=== PATIENT | female | born 1975 | race Caucasian/White ===

== ENCOUNTER 2023-12-14 08:40 | Inpatient (IN) | payer MEDICAID ==
[~2023-12-14] VITALS: Ht 165.1 cm; Wt 72.6 kg
[2023-12-14 09:01] VITALS: BP_SYST 130; PULSE 108; RESP 22; TEMP 98.3; O2SAT 98
[2023-12-14 09:37] LABS: BILIRUBIN,URINE NEGATIVE (NEGATIVE); BLOOD, URINE 2+ (NEGATIVE); CLARITY/URINE SL CLOUDY (CLEAR); COLOR,URINE YELLOW (YELLOW); GLUCOSE,URINE NEGATIVE (NEGATIVE); KETONES,URINE NEGATIVE (NEGATIVE); LEUKOCYTE ESTERASE ,URINE 3+ (NEGATIVE); NITRITE, URINE POSITIVE (NEGATIVE); PROTEIN URINE 2+ (NEGATIVE)
[2023-12-14 09:38] LABS: BASOPHILS # (AUTO) 0.1 K/uL (0.0-0.2); BASOPHILS % (AUTO) 0.6 % (0.0-2.0); EOSINOPHILS # (AUTO) 0.1 K/uL (0.0-0.4); EOSINOPHILS % (AUTO) 0.5 % (0.0-4.0); HEMATOCRIT 36.9 % (36-48); HEMOGLOBIN 12.6 g/dL (12.0-16.0); LYMPHOCYTES # (AUTO) 1.6 K/uL (1.0-5.5); LYMPHOCYTES % (AUTO) 10.5 % (20.5-51.5); MEAN CORPUSCULAR HEMOGLOBIN 30 pg (27-31); MEAN CORPUSCULAR HGB CONC 34 % (32-36); MEAN CORPUSCULAR VOLUME 88 fL (79.0-98.0); MONOCYTES # (AUTO) 1.4 K/uL (0.0-1.0); MONOCYTES % (AUTO) 9.1 % (1.7-9.3); NEUTROPHILS # (AUTO) 12.2 K/uL (1.8-7.7); NEUTROPHILS % (AUTO) 79.3 % (40.0-70.0); PLATELET COUNT (AUTO) 269 K/uL (130-430); RED BLOOD CELL COUNT(AUTO) 4.21 MIL/uL (4.2-6.2); RED CELL DISTRIBUTION WIDTH 13.3 % (9.0-15.0); WHITE BLOOD COUNT (AUTO) 15.3 K/uL (4.8-10.8)
[2023-12-14 09:55] LABS: BACTERIA,URINE MANY /HPF (None Seen); WBC,URINE 50-80 /HPF (0-3)
[2023-12-14 09:57] LABS: ALBUMIN 2.9 g/dL (3.4-4.8); CALCIUM 8.2 mg/dL (8.4-11.0); CREATININE 1.47 mg/dL (0.55-1.30); POTASSIUM 3.8 mmol/L (3.5-5.1); TOTAL BILIRUBIN 0.8 mg/dL (0.0-1.0); TOTAL PROTEIN, SERUM 7.3 g/dL (6.4-8.3)
[2023-12-14] MEDS ORDERED: ACETAMINOPHEN 325 MG TABLET PO PRN ×2 (11:15→11:45)
[2023-12-14] MEDS ORDERED: HYDROcodone/ACETAMIN 5-325 MG TAB (NORCO/ VICODIN) PO PRN (11:15)
[2023-12-14] MEDS: MORPHINE 2 MG/ML INJ. SYRINGE IVP ONE (11:54)
[2023-12-14] MEDS: cefTRIAXone 1 GM in D5W 50 ML IV ONE (11:54)
[2023-12-14] MEDS: ONDANSETRON HCL 4 MG/2 ML VIAL IVP ONE (11:55)
[2023-12-14] MEDS ORDERED: cefTRIAXone 1 GM VIAL ONE (11:58)
[2023-12-14] MEDS ORDERED: ONDANSETRON HCL 4 MG/2 ML VIAL ONE (12:00)
[2023-12-14] MEDS: HYDROcodone/ACETAMIN 10-325 MG TAB PO PRN (13:39)
[2023-12-14] MEDS ORDERED: HYDR50TA61 PO (13:50)
[2023-12-14] MEDS ORDERED: LAMO25TA5 PO (13:50)
[2023-12-14] MEDS ORDERED: SERT-436 PO (13:50)
[2023-12-14] MEDS: LORazepam 2 MG/ML VIAL IVP PRN (18:28)
[2023-12-14 22:03] VITALS: BP_SYST 127; PULSE 92; RESP 18; TEMP 97.5; O2SAT 96
[2023-12-15] VITALS: BP_SYST 124; PULSE 78; RESP 18; TEMP 97.8; O2SAT 96
[2023-12-15 05:19] LABS: BASOPHILS # (AUTO) 0.1 K/uL (0.0-0.2); BASOPHILS % (AUTO) 0.6 % (0.0-2.0); EOSINOPHILS # (AUTO) 0.1 K/uL (0.0-0.4); EOSINOPHILS % (AUTO) 0.9 % (0.0-4.0); HEMATOCRIT 35.5 % (36-48); HEMOGLOBIN 12.1 g/dL (12.0-16.0); LYMPHOCYTES % (AUTO) 13.5 % (20.5-51.5); MEAN CORPUSCULAR HEMOGLOBIN 30 pg (27-31); MEAN CORPUSCULAR HGB CONC 34 % (32-36); MEAN CORPUSCULAR VOLUME 89 fL (79.0-98.0); MONOCYTES # (AUTO) 1.2 K/uL (0.0-1.0); MONOCYTES % (AUTO) 8.4 % (1.7-9.3); NEUTROPHILS # (AUTO) 11.3 K/uL (1.8-7.7); NEUTROPHILS % (AUTO) 76.6 % (40.0-70.0); PLATELET COUNT (AUTO) 255 K/uL (130-430); RED BLOOD CELL COUNT(AUTO) 4.01 MIL/uL (4.2-6.2); RED CELL DISTRIBUTION WIDTH 13.7 % (9.0-15.0); WHITE BLOOD COUNT (AUTO) 14.8 K/uL (4.8-10.8)
[2023-12-15 05:49] LABS: ALBUMIN 2.5 g/dL (3.4-4.8); CREATININE 1.57 mg/dL (0.55-1.30); PHOSPHORUS 2.9 mg/dL (2.7-4.5); POTASSIUM 3.7 mmol/L (3.5-5.1); TOTAL BILIRUBIN 0.4 mg/dL (0.0-1.0); TOTAL PROTEIN, SERUM 6.9 g/dL (6.4-8.3)
[2023-12-15 08:02] VITALS: BP_SYST 126; PULSE 94; RESP 17; TEMP 97.1; O2SAT 94
[2023-12-15 10:36] VITALS: O2SAT 94
[2023-12-15 11:05] VITALS: BP_SYST 111; PULSE 101; RESP 17; TEMP 98; O2SAT 98
[2023-12-15] MEDS ORDERED: cefTRIAXone 1 GM IVPB PREMIX 50 ML IV SCH (12:00)
[2023-12-15] MEDS ORDERED: MORPHINE 2 MG/ML INJ. SYRINGE IVP PRN (12:15)
[2023-12-15] MEDS: MORPHINE 2 MG/ML INJ. SYRINGE IVP PRN (12:36)
[2023-12-15] MEDS: MORPHINE 2 MG/ML INJ. SYRINGE ONE (12:37)
[2023-12-15 16:40] VITALS: BP_SYST 114; PULSE 100; RESP 18; TEMP 98.3; O2SAT 97
[2023-12-15 20:00] VITALS: BP_SYST 117; PULSE 107; RESP 18; TEMP 97.7; O2SAT 95
[2023-12-16 04:00] VITALS: BP_SYST 117; PULSE 82; RESP 17; TEMP 97.8; O2SAT 98
[2023-12-16 05:04] LABS: BASOPHILS # (AUTO) 0.1 K/uL (0.0-0.2); BASOPHILS % (AUTO) 0.4 % (0.0-2.0); EOSINOPHILS # (AUTO) 0.1 K/uL (0.0-0.4); EOSINOPHILS % (AUTO) 1.1 % (0.0-4.0); HEMATOCRIT 37.6 % (36-48); HEMOGLOBIN 12.7 g/dL (12.0-16.0); LYMPHOCYTES # (AUTO) 1.9 K/uL (1.0-5.5); LYMPHOCYTES % (AUTO) 16.1 % (20.5-51.5); MEAN CORPUSCULAR HEMOGLOBIN 30 pg (27-31); MEAN CORPUSCULAR HGB CONC 34 % (32-36); MEAN CORPUSCULAR VOLUME 89 fL (79.0-98.0); MONOCYTES # (AUTO) 1.3 K/uL (0.0-1.0); MONOCYTES % (AUTO) 11.1 % (1.7-9.3); NEUTROPHILS # (AUTO) 8.3 K/uL (1.8-7.7); NEUTROPHILS % (AUTO) 71.3 % (40.0-70.0); PLATELET COUNT (AUTO) 289 K/uL (130-430); RED BLOOD CELL COUNT(AUTO) 4.25 MIL/uL (4.2-6.2); RED CELL DISTRIBUTION WIDTH 13.3 % (9.0-15.0); WHITE BLOOD COUNT (AUTO) 11.7 K/uL (4.8-10.8)
[2023-12-16 05:10] LABS: ERYTHROCYTE SEDIMENTATION RATE 22 MM/HR (0-20)
[2023-12-16 05:24] LABS: CALCIUM 8.5 mg/dL (8.4-11.0); CREATININE 1.39 mg/dL (0.55-1.30); POTASSIUM 3.9 mmol/L (3.5-5.1)
[2023-12-16 07:00] VITALS: O2SAT 98
[2023-12-16 08:00] VITALS: BP_SYST 141; PULSE 87; RESP 18; TEMP 96.8; O2SAT 97
[2023-12-16] MEDS: ONDANSETRON HCL 4 MG/2 ML VIAL IVP PRN (09:33)
[2023-12-16 12:00] VITALS: BP_SYST 122; PULSE 84; RESP 18; TEMP 97.2; O2SAT 97
[2023-12-16 16:00] VITALS: BP_SYST 141; PULSE 94; RESP 18; TEMP 99.2; O2SAT 96
[2023-12-16 20:00] VITALS: BP_SYST 132; PULSE 107; RESP 18; TEMP 97.9; O2SAT 99
[2023-12-17 04:00] VITALS: BP_SYST 133; PULSE 102; RESP 20; TEMP 97.9; O2SAT 98
[2023-12-17 07:53] LABS: BASOPHILS # (AUTO) 0.1 K/uL (0.0-0.2); BASOPHILS % (AUTO) 0.3 % (0.0-2.0); EOSINOPHILS % (AUTO) 0.2 % (0.0-4.0); HEMATOCRIT 35.6 % (36-48); LYMPHOCYTES # (AUTO) 1.7 K/uL (1.0-5.5); LYMPHOCYTES % (AUTO) 11.6 % (20.5-51.5); MEAN CORPUSCULAR HEMOGLOBIN 30 pg (27-31); MEAN CORPUSCULAR HGB CONC 34 % (32-36); MEAN CORPUSCULAR VOLUME 88 fL (79.0-98.0); MONOCYTES # (AUTO) 1.7 K/uL (0.0-1.0); MONOCYTES % (AUTO) 11.2 % (1.7-9.3); NEUTROPHILS # (AUTO) 11.6 K/uL (1.8-7.7); NEUTROPHILS % (AUTO) 76.7 % (40.0-70.0); PLATELET COUNT (AUTO) 291 K/uL (130-430); RED BLOOD CELL COUNT(AUTO) 4.04 MIL/uL (4.2-6.2); RED CELL DISTRIBUTION WIDTH 13.2 % (9.0-15.0); WHITE BLOOD COUNT (AUTO) 15.1 K/uL (4.8-10.8)
[2023-12-17 07:58] LABS: ERYTHROCYTE SEDIMENTATION RATE 71 MM/HR (0-20)
[2023-12-17 08:00] VITALS: BP_SYST 136; PULSE 105; RESP 18; TEMP 97.8; O2SAT 95
[2023-12-17 08:15] LABS: ALBUMIN 2.3 g/dL (3.4-4.8); CALCIUM 8.5 mg/dL (8.4-11.0); CREATININE 1.57 mg/dL (0.55-1.30); PHOSPHORUS 3.2 mg/dL (2.7-4.5); TOTAL BILIRUBIN 0.5 mg/dL (0.0-1.0); TOTAL PROTEIN, SERUM 7.3 g/dL (6.4-8.3)
[2023-12-17] MEDS ORDERED: HYDR-3927 PO (10:40)
[2023-12-17 12:00] VITALS: BP_SYST 135; PULSE 98; RESP 18; TEMP 97.4; O2SAT 96
[2023-12-17] MEDS ORDERED: LEVO-62 PO (12:42)
[2023-12-17] MEDS: ERTAPENEM SODIUM 1 GM in NS 50 ML IV SCH (13:16)
[2023-12-17] MEDS: levoFLOXacin 250 MG TABLET PO ONE (13:17)
[2023-12-17 14:27] VITALS: BP_SYST 135; PULSE 98; RESP 18; TEMP 97.4; O2SAT 96
[2023-12-17 15:25] VITALS: O2SAT 95
== END 2023-12-17 15:05 | disposition home or self-care (01) | DRG 720 ==
LOC: SED 08:40 → SMU 11:01
PROVIDERS: ADMIT Preventive Medicine Preventive Medicine/Occupational Environmental Medicine; ATTEND Preventive Medicine Preventive Medicine/Occupational Environmental Medicine
DX: A41.9 Sepsis, unspecified organism (principal); E43 Unspecified severe protein-calorie malnutrition; N17.9 Acute kidney failure, unspecified; E83.51 Hypocalcemia; E88.09 Other disorders of plasma-protein metabolism, not elsewhere classified; Q61.3 Polycystic kidney, unspecified; B96.20 Unspecified Escherichia coli [E. coli] as the cause of diseases classified elsewhere; N18.2 Chronic kidney disease, stage 2 (mild); F19.90 Other psychoactive substance use, unspecified, uncomplicated; N10 Acute pyelonephritis; F10.10 Alcohol abuse, uncomplicated; Z79.899 Other long term (current) drug therapy; Z68.26 Body mass index [BMI] 26.0-26.9, adult
CPT/HCPCS: 36415; 76770; 80048; 80053; 81000; 81001; 81015; 83690; 83735; 84100; 85025; 85651; 87040; 87086; 87186; 96365; 96375; 99285; J0696; J1335; J2060; J2270; J2405; J7060